=== PATIENT | male | born 1980 | race African-American/Black ===

== ENCOUNTER 2016-06-20 07:18 | Emergency (ER) | payer OTHER ==
[2016-06-20] MEDS ORDERED: IPRATROPIUM/ALBUTEROL 0.5-2.5 MG/3 ML AMPUL NEB ONE (07:49)
--- NOTE | 2016-06-20 07:50 | ER Document Report ---
HPI - HPI Patient complains to provider of: cough, cold symptoms Onset: Other - 4 days Onset/Duration: Persistent Quality of pain: Achy Pain Level: 3 Context: Patient states he was diagnosed with pneumonia 4 days ago. Patient complains of continued cough and shortness of breath with decreased energy. Patient denies any fever. Patient has been taking doxycycline and using albuterol to treat his symptoms. Patient states that whenever he went to work out in the cold today his symptoms started to worsen Associated Symptoms: Body/muscle aches, Productive cough, Shortness of breath. denies: Chest pain, Chills, Fever Exacerbated by: Denies Relieved by: Denies Similar symptoms previously: Yes Recently seen / treated by doctor: Yes - ROS ROS below otherwise negative: Yes Systems Reviewed and Negative: Yes All other systems reviewed and negative - CONSTITUTIONAL Constitutional: DENIES: Fever, Chills - EENT EENT: REPORTS: Congestion - CARDIOVASCULAR Cardiovascular: DENIES: Chest pain - RESPIRATORY Respiratory: REPORTS: Trouble Breathing, Coughing - GASTROINTESTINAL Gastrointestinal: DENIES: Abdominal Pain, Nausea, Patient vomiting - MUSCULOSKELETAL Musculoskeletal: DENIES: Extremity pain, Back Pain, Neck Pain - DERM Skin Color: Normal Skin Problems: None Past Medical History - General Information source: Patient - Social History Smoking Status: Current Every Day Smoker Chew tobacco use (# tins/day): No Frequency of alcohol use: None Drug Abuse: None Occupation: construction Lives with: Family Family History: Reviewed & Not Pertinent, DM Patient has suicidal ideation: No Patient has homicidal ideation: No - Medical History Medical History: Negative Past Surgical History: Reports: Hx Orthopedic Surgery - Right wrist tendon repair - Immunizations Hx Diphtheria, Pertussis, Tetanus Vaccination: Yes Vertical Provider Document - CONSTITUTIONAL Agree With Documented VS: Yes Exam Limitations: No Limitations General Appearance: WD/WN, No Apparent Distress - INFECTION CONTROL TRAVEL OUTSIDE OF THE [place] IN LAST 30 DAYS: No - HEENT HEENT: Atraumatic, Normocephalic. negative: Pharyngeal Exudate, Pharyngeal Tenderness, Pharyngeal Erythema, Tympanic Membrane Red, Tympanic Membrane Bulging - NECK Neck: Normal Inspection, Supple. negative: Lymphadenopathy-Left, Lymphadenopathy-Right - RESPIRATORY Respiratory: No Respiratory Distress, Rhonchi. negative: Rales O2 Sat by Pulse Oximetry: 96 - CARDIOVASCULAR Cardiovascular: Regular Rate, Regular Rhythm, No Murmur - GI/ABDOMEN Gastrointestinal: Abdomen Soft, Abdomen Non-Tender - BACK Back: Normal Inspection. negative: CVA Tenderness-Right, CVA Tenderness-Left - MUSCULOSKELETAL/EXTREMETIES Musculoskeletal/Extremeties: MAEW, FROM, Non-Tender - NEURO Level of Consciousness: Awake, Alert, Appropriate Motor/Sensory: No Motor Deficit - DERM Integumentary: Warm, Dry, No Rash Course - Vital Signs Vital signs: Temp Pulse Resp BP Pulse Ox 98.0 F 83 16 129/78 H 96 06/20/16 07:28 06/20/16 07:28 06/20/16 07:28 06/20/16 07:28 06/20/16 07:28 - Laboratory Result Diagrams: 06/20/16 08:05 06/20/16 08:05 Laboratory results interpreted by me: 06/20/16 09:31 Labs- Entire Visit 06/20/16 06/20/16 06/20/16 08:05 08:05 08:25 WBC 9.2 RBC 5.04 Hgb 14.7 Hct 42.5 MCV 84 MCH 29.2 MCHC 34.6 RDW 14.6 H Plt Count 148 L Total Counted 100 Seg Neutrophils % Not Reportable Seg Neuts % (Manual) 55 Lymphocytes % Not Reportable Lymphocytes % (Manual) 31 Monocytes % Not Reportable Monocytes % (Manual) 14 H Eosinophils % Not Reportable Eosinophils % (Manual) 0 Basophils % Not Reportable Basophils % (Manual) 0 Absolute Neutrophils Not Reportable Abs Neuts (Manual) 5.1 Absolute Lymphocytes Not Reportable Abs Lymphs (Manual) 2.9 Absolute Monocytes Not Reportable Abs Monocytes (Manual) 1.3 Absolute Eosinophils Not Reportable Absolute Eos (Manual) 0.0 Absolute Basophils Not Reportable Abs Basophils (Manual) 0.0 Toxic Vacuolation PRESENT Platelet Comment DECREASED Anisocytosis SLIGHT Tear Drop Cells SLIGHT Sodium 143.9 Potassium 3.9 Chloride 105 Carbon Dioxide 28 Anion Gap 11 BUN 8 Creatinine 0.91 Est GFR ( Amer) > 60 Est GFR (Non-Af Amer) > 60 Glucose 95 Calcium 9.5 Total Bilirubin 0.3 Direct Bilirubin 0.0 AST 24 ALT 32 Alkaline Phosphatase 79 Total Protein 7.3 Albumin 4.0 Urine Color YELLOW Urine Appearance CLEAR Urine pH 8.0 Ur Specific [place] 1.012 Urine Protein NEGATIVE Urine Glucose (UA) NEGATIVE Urine Ketones NEGATIVE Urine Blood NEGATIVE Urine Nitrite NEGATIVE Urine Bilirubin NEGATIVE Urine Urobilinogen NEGATIVE Ur Leukocyte Esterase NEGATIVE Urine WBC (Auto) 0 Squamous Epi Cells Auto 3 Urine Mucus (Auto) RARE Urine Ascorbic Acid NEGATIVE - Diagnostic Test Radiology reviewed: Reports reviewed Discharge - Discharge Clinical Impression: Cough, hx of pneumonia Upper respiratory infection Qualifiers: URI type: unspecified URI Qualified Code(s): J06.9 - Acute upper respiratory infection, unspecified Condition: Stable Disposition: HOME, SELF-CARE Instructions: Pneumonia ([facility]), Antibiotic Therapy ([facility]) Additional Instructions: Return immediately for any new or worsening symptoms Followup with your primary care provider, call tomorrow to make a followup appointment Finish out your antibiotic Continue to use albuterol inhaler as needed to help with cough Prescriptions: Benzonatate [Tessalon Perle 100 mg Capsule] 100 mg PO Q8HP PRN #20 cap PRN Reason: Naproxen [Naprosyn 250 Nmg Tablet] 1 tab PO BID #14 tablet Forms: Parent Work Note, Return to Work Referrals: [facility] [Provider Group] - Follow up as needed
[2016-06-20 08:33] LABS: HEMATOCRIT 42.5 % (37.9-51.0); HEMOGLOBIN 14.7 g/dL (13.5-17.0); HGB HCT DIFFERENCE 1.6; MEAN CORPUSCULAR HEMOGLOBIN 29.2 pg (27.0-33.4); MEAN CORPUSCULAR HGB CONC 34.6 g/dL (32.0-36.0); MEAN CORPUSCULAR VOLUME 84 fl (80-97); RED BLOOD COUNT 5.04 10^6/uL (4.35-5.55); RED CELL DISTRIBUTION WIDTH 14.6 % (11.5-14.0); WHITE BLOOD COUNT 9.2 10^3/uL (4.0-10.5)
[2016-06-20 08:44] LABS: ALANINE AMINOTRANSFERASE 32 U/L (21-72); ALKALINE PHOSPHATASE 79 U/L (38-126); ANION GAP 11 (5-19); ASPARTATE AMINO TRANSFERASE 24 U/L (17-59); BILIRUBIN,TOTAL 0.3 mg/dL (0.2-1.3); BLOOD UREA NITROGEN 8 mg/dL (7-20); CALCIUM 9.5 mg/dL (8.4-10.2); CARBON DIOXIDE 28 mmol/L (22-30); CHLORIDE 105 mmol/L (98-107); CREATININE RESULT 0.91 mg/dL (0.52-1.25); GLUCOSE 95 mg/dL (75-110); POTASSIUM 3.9 mmol/L (3.6-5.0); SODIUM 143.9 mmol/L (137-145); TOTAL PROTEIN 7.3 g/dL (6.3-8.2)
[2016-06-20 08:50] LABS: APPEARANCE,URINE CLEAR; BILIRUBIN,URINE NEGATIVE (NEGATIVE); GLUCOSE, URINE NEGATIVE (NEGATIVE); KETONES,URINE NEGATIVE (NEGATIVE); LEUKOCYTE ESTERASE,URINE NEGATIVE (NEGATIVE); NITRITE,URINE NEGATIVE (NEGATIVE); PROTEIN,URINE NEGATIVE (NEGATIVE); URINE SPECIFIC GRAVITY 1.012; UROBILINOGEN,URINE NEGATIVE mg/dL (<2.0)
[2016-06-20 08:52] LABS: BASOPHILS % (MANUAL) 0 % (0-2); EOSINOPHILS % (MANUAL) 0 % (0-6); LYMPHOCYTES % (MANUAL) 31 % (13-45); TOTAL CELLS COUNTED 100
[2016-06-20 08:54] LABS: ANISOCYTOSIS SLIGHT; TEAR DROP CELLS SLIGHT; TOXIC VACUOLATION PRESENT
[2016-06-20 10:08] VITALS: BP 136/84
== END 2016-06-20 09:50 | disposition home or self-care (01) ==
LOC: ER 07:18
DX: J06.9 Acute upper respiratory infection, unspecified (principal); M79.1 Myalgia; F17.200 Nicotine dependence, unspecified, uncomplicated
CPT/HCPCS: 94640; 99283; 36415; 87040; 87070; 87205; 85025; 80053; 81001; 71020; J7620

== ENCOUNTER 2016-10-09 17:40 | Emergency (ER) | payer OTHER ==
[2016-10-09] MEDS ORDERED: OXYCODONE-ACETAMINOPHEN 5-325 MG TABLET PO ONE (18:28)
[2016-10-09] MEDS ORDERED: PENICILLIN V POTASSIUM 500 MG TABLET PO ONE (18:28)
--- NOTE | 2016-10-09 18:28 | ER Document Report ---
HPI - HPI Patient complains to provider of: dental pain Onset: Other - 3 weeks Onset/Duration: Persistent Quality of pain: Achy, Throbbing Severity: Severe Pain Level: 5 Context: Patient presents emergency department with complaints of dental pain for the past 3 weeks. He reports cracked tooth for a while but the tooth just started hurting. He reports he's been using ibuprofen and orajel on his right lower back molar without relief of symptoms. He denies fever vomiting diarrhea. He reports he has an appointment or plans on getting an appointment with a dentist , Dr. Bañuelos. Associated Symptoms: None Exacerbated by: Denies Relieved by: Denies Similar symptoms previously: No Recently seen / treated by doctor: No - DERM Skin Color: Normal Past Medical History - General Information source: Patient - Social History Smoking Status: Unknown if Ever Smoked Cigarette use (# per day): No Frequency of alcohol use: None Drug Abuse: None Lives with: Family Family History: Reviewed & Not Pertinent, DM Patient has suicidal ideation: No Patient has homicidal ideation: No - Medical History Medical History: Negative Renal/ Medical History: Denies: Hx Peritoneal Dialysis Past Surgical History: Reports: Hx Orthopedic Surgery - Right wrist tendon repair - Immunizations Hx Diphtheria, Pertussis, Tetanus Vaccination: Yes Vertical Provider Document - CONSTITUTIONAL Agree With Documented VS: Yes Exam Limitations: No Limitations General Appearance: WD/WN, Mild Distress - guarding mouth - INFECTION CONTROL TRAVEL OUTSIDE OF THE [place] IN LAST 30 DAYS: No - HEENT HEENT: Atraumatic, Normocephalic. negative: Conjuctival Injection, Pharyngeal Erythema Mouth Diagram: 1 - c/o pain, no erythema, pustule, swelling, opens mouth wide, no induration, no ludwigs - NECK Neck: Normal Inspection, Supple. negative: Lymphadenopathy-Left, Lymphadenopathy-Right - RESPIRATORY Respiratory: Breath Sounds Normal, No Respiratory Distress O2 Sat by Pulse Oximetry: 98 - CARDIOVASCULAR Cardiovascular: Regular Rate, Regular Rhythm - MUSCULOSKELETAL/EXTREMETIES Musculoskeletal/Extremeties: [place]GH [place] - NEURO Level of Consciousness: Awake, Alert, Appropriate Motor/Sensory: No Motor Deficit - DERM Integumentary: Warm, Dry Course - Re-evaluation Re-evalutation: 10/09/16 18:33 Patient instructed on penicillin and Percocet for pain. Patient reports he has an appointment he plans on getting an appointment with a dentist Dr. Bañuelos tomorrow. Patient instructed the medication will not take care of his problem. But will help him feel better. He verbalized understanding that the definitive treatment will be follow-up with a dentist. - Vital Signs Vital signs: Temp Pulse Resp BP Pulse Ox 98.6 F 73 16 162/102 H 98 10/09/16 18:03 10/09/16 18:03 10/09/16 18:03 10/09/16 18:03 10/09/16 18:03 Discharge - Discharge Clinical Impression: Pain, dental, Elevated blood pressure reading Condition: Stable Disposition: HOME, SELF-CARE Instructions: Oral Narcotic Medication ([facility]), Toothache ([facility]), Penicillin V K ( [facility]), [facility], Dentist Additional Instructions: *You have been evaluated for dental pain, elevated blood pressure reading *Take medications as prescribed *Follow up with a dentist this next week *Return to ED for worsening condition, changes, needs Monitor your blood pressure. Your blood pressure was elevated today. This may be because you were anxious, in pain or because you need medication. It is important to follow up with your primary care provider for full evaluation. Prescriptions: Oxycodone HCl/Acetaminophen [Percocet 5-325 mg Tablet] 1 - 2 tab PO ASDIR PRN # 15 tablet PRN Reason: Penicillin V Potassium [Penicillin Vk 500 mg Tablet] 500 mg PO BID #20 tablet Forms: Elevated Blood Pressure
[2016-10-09 18:54] VITALS: BP 148/92
== END 2016-10-09 18:54 | disposition home or self-care (01) ==
LOC: ER 17:40
DX: K08.9 Disorder of teeth and supporting structures, unspecified (principal); R03.0 Elevated blood-pressure reading, without diagnosis of hypertension
CPT/HCPCS: 99282

== ENCOUNTER 2017-08-17 06:41 | Emergency (ER) | payer SELFPAY ==
[2017-08-17 07:13] LABS: ABSOLUTE BASOPHILS # (AUTO) 0.1 10^3/uL (0.0-0.2); ABSOLUTE EOSINOPHILS # (AUTO) 0.2 10^3/uL (0.0-0.6); ABSOLUTE LYMPHOCYTES (AUTO) 1.8 10^3/uL (0.5-4.7); ABSOLUTE MONOCYTES (AUTO) 1.1 10^3/uL (0.1-1.4); ABSOLUTE NEUT (AUTO) 8.2 10^3/uL (1.7-8.2); BASOPHILS % (AUTO) 0.8 % (0-2); EOSINOPHILS % (AUTO) 1.5 % (0-6); HEMATOCRIT 42.7 % (37.9-51.0); HEMOGLOBIN 14.7 g/dL (13.5-17.0); LYMPHOCYTES % (AUTO) 15.6 % (13-45); MEAN CORPUSCULAR HEMOGLOBIN 29.4 pg (27.0-33.4); MEAN CORPUSCULAR HGB CONC 34.4 g/dL (32.0-36.0); MEAN CORPUSCULAR VOLUME 86 fl (80-97); MONOCYTES % (AUTO) 9.9 % (3-13); PLATELET COUNT 190 10^3/uL (150-450); RED BLOOD COUNT 4.99 10^6/uL (4.35-5.55); RED CELL DISTRIBUTION WIDTH 13.9 % (11.5-14.0); SEGMENTED NEUTROPHILS % (AUTO) 72.2 % (42-78); TOTAL CELLS COUNTED % (AUTO) 100 %; WHITE BLOOD COUNT 11.3 10^3/uL (4.0-10.5)
[2017-08-17 07:23] LABS: ALANINE AMINOTRANSFERASE 34 U/L (21-72); ALBUMIN 4.4 g/dL (3.5-5.0); ALKALINE PHOSPHATASE 68 U/L (38-126); ANION GAP 11 (5-19); ASPARTATE AMINO TRANSFERASE 20 U/L (17-59); BILIRUBIN,DIRECT 0.3 mg/dL (0.0-0.4); BILIRUBIN,TOTAL 0.3 mg/dL (0.2-1.3); BLOOD UREA NITROGEN 11 mg/dL (7-20); CARBON DIOXIDE 24 mmol/L (22-30); CHLORIDE 107 mmol/L (98-107); GLUCOSE 117 mg/dL (75-110); POTASSIUM 4.4 mmol/L (3.6-5.0); SODIUM 142.2 mmol/L (137-145)
[2017-08-17 07:24] LABS: LIPASE 198.8 U/L (23-300); TOTAL PROTEIN 7.6 g/dL (6.3-8.2)
[2017-08-17 07:38] LABS: APPEARANCE,URINE CLEAR; BILIRUBIN,URINE NEGATIVE (NEGATIVE); COLOR,URINE STRAW; GLUCOSE, URINE NEGATIVE (NEGATIVE); KETONES,URINE NEGATIVE (NEGATIVE); LEUKOCYTE ESTERASE,URINE NEGATIVE (NEGATIVE); NITRITE,URINE NEGATIVE (NEGATIVE); PROTEIN,URINE NEGATIVE (NEGATIVE); URINE SPECIFIC GRAVITY 1.011; UROBILINOGEN,URINE NEGATIVE mg/dL (<2.0)
[2017-08-17] MEDS ORDERED: ONDANSETRON 4 MG TAB.RAPDIS PO ONE (07:41)
[2017-08-17] MEDS ORDERED: DICYCLOMINE HCL 20 MG TABLET PO ONE (07:41)
--- NOTE | 2017-08-17 07:52 | ER Document Report ---
ED General - General Chief Complaint: Abdominal Pain Stated Complaint: ABDOMINAL PAIN Time Seen by Provider: 08/17/17 06:53 TRAVEL OUTSIDE OF THE [place] IN LAST 30 DAYS: No - HPI Patient complains to provider of: Abdominal pain Notes: Patient coming in for diffuse crampy abdominal pain ongoing since last night. Patient states he had Burger Garcia at around 9:00 workup around 2:00 with abdominal pain states slight nausea normal bowel movement no diarrhea no vomiting. Patient otherwise is concerned that he may have diverticulitis. States that he was told by his [id number] that symptoms are similar to when she had a diverticular flare. Patient states recently had an upper and lower GI scope with only a small polyp no signs of diverticulosis on the prescription this was done approximately less than a year ago. Resting company upon my evaluation - Related Data Allergies/Adverse Reactions: No Known Allergies Allergy (Verified 10/09/16 18:01) Past Medical History - Social History Smoking Status: Current Every Day Smoker Chew tobacco use (# tins/day): No Frequency of alcohol use: None Drug Abuse: None Family History: Reviewed & Not Pertinent, DM Patient has suicidal ideation: No Patient has homicidal ideation: No Renal/ Medical History: Denies: Hx Peritoneal Dialysis Past Surgical History: Reports: Hx Orthopedic Surgery - Right wrist tendon repair - Immunizations Hx Diphtheria, Pertussis, Tetanus Vaccination: Yes Review of Systems - Review of Systems Constitutional: No symptoms reported EENT: No symptoms reported Cardiovascular: No symptoms reported Respiratory: No symptoms reported Gastrointestinal: Abdominal pain Genitourinary: No symptoms reported Male Genitourinary: No symptoms reported Musculoskeletal: No symptoms reported Skin: No symptoms reported Hematologic/Lymphatic: No symptoms reported Neurological/Psychological: No symptoms reported Physical Exam - Vital signs Vitals: Temp Pulse Resp BP Pulse Ox 98.6 F 66 17 141/77 H 97 08/17/17 06:48 08/17/17 06:48 08/17/17 06:48 08/17/17 06:48 08/17/17 06:48 Interpretation: Normal - General General appearance: Appears well, Alert - HEENT Head: Normocephalic, Atraumatic Eyes: Normal Pupils: PERRL - Respiratory Respiratory status: No respiratory distress Chest status: Nontender Breath sounds: Normal Chest palpation: Normal - Cardiovascular Rhythm: Regular Heart sounds: Normal auscultation Murmur: No - Abdominal Inspection: Normal Distension: No distension Bowel sounds: Normal Tenderness: Tender - Diffuse nonspecific tenderness no guarding or rebound. No : McBurney's point, Horowitz's sign, Guarding, Rebound Organomegaly: No organomegaly - Back Back: Normal, Nontender - Extremities General upper extremity: Normal inspection, Nontender, Normal color, Normal ROM , Normal temperature General lower extremity: Normal inspection, Nontender, Normal color, Normal ROM , Normal temperature, Normal weight bearing. No: Mary Jane's sign - Neurological Neuro grossly intact: Yes Cognition: Normal Orientation: AAOx4 [place] Coma Scale Eye Opening: Spontaneous Oleg Coma Scale Verbal: Oriented Oleg Coma Scale Motor: Obeys Commands Oleg Coma Scale Total: 15 Speech: Normal Motor strength normal: LUE, RUE, LLE, RLE Sensory: Normal - Psychological Associated symptoms: Normal affect, Normal mood - Skin Skin Temperature: Warm Skin Moisture: Dry Skin Color: Normal Course - Re-evaluation Re-evalutation: 08/17/17 13:55 The patient presents with abdominal pain without signs of peritonitis or other life-threatening or serious etiology. The patient appears stable for discharge and has been instructed to return immediately if the symptoms worsen in any way , or in 8-12hr if not improved for re-evaluation. The patient has been instructed to return if the symptoms worsen or change in any way. Laboratory values not reveal any significant pathology. Patient more likely has a foodborne or viral illness causing crampy abdominal pain. Patient was given nausea control pain control discharged home. - Vital Signs Vital signs: Temp Pulse Resp BP Pulse Ox 98.6 F 66 20 136/78 H 100 08/17/17 06:48 08/17/17 06:48 08/17/17 07:58 08/17/17 07:58 08/17/17 07:58 - Laboratory Result Diagrams: 08/17/17 07:00 08/17/17 07:00 Laboratory results interpreted by me: 08/17/17 08/17/17 07:00 07:00 WBC 11.3 H Glucose 117 H Discharge - Discharge Clinical Impression: Abdominal pain Qualifiers: Abdominal location: generalized Qualified Code(s): R10.84 - Generalized abdominal pain Instructions: Abdominal Pain ([facility]), Antispasmodics ([facility]), Gastroenteritis ( adult) ([facility]) Additional Instructions: Laboratory studies today did not reveal any significant pathology. Your abdominal examination and history is consistent with either a foodborne illness or a viral illness causing her abdominal pain. Please take medication as prescribed. He may also take Tylenol for pain control. Take Zofran for nausea control. I recommend a bland diet mostly consistent with fluids and starchy foods. Return to ER symptoms worsen. Prescriptions: Dicyclomine HCl [Bentyl 20 mg Tablet] 20 mg PO QID #30 tablet Ondansetron [Zofran Odt] 4 mg PO Q6 PRN #30 tab.rapdis PRN Reason: For Nausea/Vomiting Forms: Return to Work
[2017-08-17 08:11] VITALS: BP 136/78
== END 2017-08-17 07:58 | disposition home or self-care (01) ==
LOC: ER 06:41
DX: R10.84 Generalized abdominal pain (principal); R11.0 Nausea; F17.200 Nicotine dependence, unspecified, uncomplicated
CPT/HCPCS: 99284; 36415; 83690; 85025; 80053; 81001; J3490; S0119

== ENCOUNTER 2019-04-06 12:14 | Emergency (ER) | payer SELFPAY ==
[2019-04-06 12:21] VITALS: BP 146/90
[2019-04-06] MEDS ORDERED: METHOCARBAMOL 500 MG TABLET PO ONE (12:56)
[2019-04-06] MEDS ORDERED: KETOROLAC TROMETHAMINE INJ/PF 30 MG/1 ML SDV IM ONE (12:56)
[2019-04-06 13:14] LABS: APPEARANCE,URINE CLEAR; BILIRUBIN,URINE NEGATIVE (NEGATIVE); COLOR,URINE STRAW; GLUCOSE, URINE NEGATIVE (NEGATIVE); KETONES,URINE NEGATIVE (NEGATIVE); LEUKOCYTE ESTERASE,URINE NEGATIVE (NEGATIVE); NITRITE,URINE NEGATIVE (NEGATIVE); PROTEIN,URINE NEGATIVE (NEGATIVE); URINE SPECIFIC GRAVITY 1.005; UROBILINOGEN,URINE NEGATIVE mg/dL (<2.0)
--- NOTE | 2019-04-06 13:23 | ER Document Report ---
HPI - HPI Time Seen by Provider: 04/06/19 12:46 Pain Level: 5 Context: Patient is a 38-year-old male who presents to the emergency department with a chief complaint of low back pain. Patient reports this has been present for 2 days. Patient reports this was a gradual onset. Patient reports he is not having any urinary symptoms but did feel relief when he emptied his bladder. Patient denies blood in the urine. Patient denies fever. Patient reports he has had intermittent chills. Patient states he does not have a history of kidney stones. Patient reports that his back pain is bilateral. Patient reports he did quit smoking cigarettes 1 month ago and has been coughing up a lot of clear mucus. Patient reports he feels like he has a muscle tightness in his back and is unsure if this is from all the coughing he has done. Patient reports he had a urinary tract infection in the past but that this seems different. Patient reports his back pain is worse with movement. Patient denies saddle anesthesia. Patient denies radiation of his pain. Patient denies numbness or tingling to his lower extremities. Patient denies injury, recent heavy lifting or a fall. - REPRODUCTIVE Reproductive: DENIES: : Past Medical History - General Information source: Patient - Social History Smoking Status: Former Smoker Frequency of alcohol use: None Drug Abuse: None Lives with: Spouse/Significant other Family History: Reviewed & Not Pertinent, DM Patient has suicidal ideation: No Patient has homicidal ideation: No - Past Medical History Cardiac Medical History: Reports: None Pulmonary Medical History: Reports: None EENT Medical History: Reports: None Neurological Medical History: Reports: None Endocrine Medical History: Reports: None Renal/ Medical History: Reports: None. Denies: Hx Peritoneal Dialysis Malignancy Medical History: Reports None GI Medical History: Reports: None Musculoskeletal Medical History: Reports None Skin Medical History: Reports None Psychiatric Medical History: Reports: None Traumatic Medical History: Reports: None Infectious Medical History: Reports: None Past Surgical History: Reports: Hx Orthopedic Surgery - Right wrist tendon repair - Immunizations Hx Diphtheria, Pertussis, Tetanus Vaccination: Yes Vertical Provider Document - CONSTITUTIONAL Agree With Documented VS: Yes Exam Limitations: No Limitations General Appearance: No Apparent Distress - INFECTION CONTROL TRAVEL OUTSIDE OF THE [place] IN LAST 30 DAYS: No - HEENT HEENT: Atraumatic, Normocephalic, PERRLA - NECK Neck: Normal Inspection - RESPIRATORY Respiratory: Breath Sounds Normal, No Respiratory Distress Notes: Intermittent dry cough. - CARDIOVASCULAR Cardiovascular: Regular Rate, Regular Rhythm - GI/ABDOMEN Gastrointestinal: Abdomen Soft, Abdomen Non-Tender, Normal Bowel Sounds - BACK Notes: No CVA tenderness. Patient has point tenderness to bilateral latissimus dorsi in the thoracolumbar fascia. No cervical, thoracic or lumbar midline tenderness. - MUSCULOSKELETAL/EXTREMETIES Musculoskeletal/Extremeties: FROM, No Edema - NEURO Level of Consciousness: Awake, Alert, Appropriate - DERM Integumentary: Warm, Dry, No Rash Course - Re-evaluation Re-evalutation: 04/06/19 13:40 Patient reports feeling better after receiving the muscle relaxer and anti- inflammatory. I did inform the patient that his urinalysis was negative but return for any new or worsening symptoms. I am treating the patient for a muscle strain. Strict return precautions given. Patient continues to deny radiation of pain. Patient reports last Monday he did cough up a lot of clear phlegm. Patient reports he thinks is from stopping smoking. - Vital Signs Vital signs: Temp Pulse Resp BP Pulse Ox 99.0 F 71 18 146/90 H 96 04/06/19 12:21 04/06/19 12:21 04/06/19 12:21 04/06/19 12:21 04/06/19 12:21 - Laboratory Laboratory results interpreted by me: 04/06/19 13:20 Laboratory 04/06/19 13:00 Urine Color STRAW Urine Appearance CLEAR Urine pH 8.0 Ur Specific [place] 1.005 Urine Protein NEGATIVE Urine Glucose (UA) NEGATIVE Urine Ketones NEGATIVE Urine Blood NEGATIVE Urine Nitrite NEGATIVE Urine Bilirubin NEGATIVE Urine Urobilinogen NEGATIVE Ur Leukocyte Esterase NEGATIVE Urine WBC (Auto) 2 Urine RBC (Auto) 0 Urine Mucus (Auto) RARE Urine Ascorbic Acid NEGATIVE Discharge - Discharge Clinical Impression: Muscle strain Back pain Qualifiers: Back pain location: low back pain Chronicity: acute Back pain laterality: bilateral Sciatica presence: without sciatica Qualified Code(s): M54.5 - Low back pain Condition: Stable Disposition: HOME, SELF-CARE Additional Instructions: Today you are seen in the emergency department for back pain. Your symptoms are consistent with a muscle strain. We will treat this with anti-inflammatories as well as muscle relaxers. We did check a urinalysis which did not indicate an infection of the urine or blood in the urine. Please use ice packs to the area. It is unsure what is causes pain as you do not report an injury. This could be from all the coughing and spitting that you have been doing since you have quit smoking. Please return emergency department if your symptoms change or worsen. Please return if you have radiation of pain, numbness or tingling down the back of your leg or weakness in the leg, fever or any other concerning signs or symptoms. LOW BACK PAIN: Three out of every four people will have an episode of disabling back pain during their lifetime. Most commonly the pain is due to straining of the muscles and ligaments in the low back. Usual treatment includes: (1) Rest on a firm surface. Avoid lying on your stomach. (2) Ice pack the painful area. After a few days, gentle heat may be used intermittently to relax the area, or ice packs can be continued. (3) Medication may be needed -- muscle relaxers and antiinflammatory medicines are commonly used. (4) As the back improves, exercises are prescribed to strengthen the back and abdominal muscles. Your doctor will advise you on the proper care for your back at each stage in your recovery. You may be better in a few days -- or healing may take several weeks. If new symptoms of a "herniated disc" (radiation of pain, numbness, or tingling down the back of the leg or weakness in the leg) occur, you should be re-examined. Further testing may be necessary. PAIN MEDICATION INJECTION: You have received an injection of a pain medication. You should experience significant pain relief within 45 minutes. If this injection was a narcotic -- it will impair your judgement, slow your reaction time and make you sleepy (as well as relieve your pain). Narcotics also can cause nausea. You should not drive, work with machinery, or perform any task requiring mental alertness until all effects of the medication are gone -- six to eight hours. Do not take any alcohol, or sedatives, and do not take any other medication without checking with your physician. MUSCLE RELAXERS: Muscle relaxing medications are usually prescribed for acute muscle spasm or injury to the neck and back. They are often combined with antiinflammatory pain medication for increased relief. You may stop the muscle relaxer when the pain and stiffness have improved. Start the medication again if spasms recur. Muscle relaxers may cause drowsiness, especially with the first dose. Do not operate machinery or drive while under the effects of the medication. Most muscle relaxers last up to 24 hours. Do not combine the medication with alcohol. ICE PACKS: Apply ice packs frequently against the painful area. Many different schedules are recommended, such as "20 minutes on, 20 minutes off" or "one hour ice, two hours rest." If you need to work, you may need to go longer between ice treatments. You should plan to have the area ice packed AT LEAST one fourth of the time. The ice should be applied over the wrap, tape, or splint, or over a layer of cloth -- not directly against the skin. Some ice bags have a built-in cloth and can be put directly on the skin. WARM PACKS: After approximately two days, apply gentle heat (such as a heating pad or hot water bottle) for about 20 to 30 minutes about every two hours -- at least four times daily. Warmth and elevation will help you make a more rapid recovery, and will ease the pain considerably. Do not use HOT heat, and never apply heat for longer than 30 minutes. The continuous heat can invisibly damage skin and muscles -- even when no burn is seen on the surface. Damaged muscles can make you MORE sore. FOLLOW-UP CARE: If you have been referred to a physician for follow-up care, call the physicians office for an appointment as you were instructed or within the next two days. If you experience worsening or a significant change in your symptoms, notify the physician immediately or return to the Emergency Department at any time for re-evaluation. Prescriptions: Naproxen 500 mg PO BID PRN #14 tablet PRN Reason: Methocarbamol [Robaxin 500 mg Tablet] 1,000 mg PO TID PRN #21 tablet PRN Reason: Forms: Return to Work
== END 2019-04-06 13:43 | disposition home or self-care (01) ==
LOC: ER 12:14
DX: R10.9 Unspecified abdominal pain (principal); R53.1 Weakness; Z87.891 Personal history of nicotine dependence
CPT/HCPCS: 81001; J1885; 96374; 99283

== ENCOUNTER 2019-04-07 21:58 | Emergency (ER) | payer SELFPAY ==
[2019-04-07] MEDS ORDERED: PROCHLORPERAZINE EDISYLATE INJ 10 MG/2 ML VIAL IV ONE (22:53)
[2019-04-07] MEDS ORDERED: RINGERS SOLUTION,LACTATED 1,000 ML IV ONE (22:53)
[2019-04-07] MEDS ORDERED: DIPHENHYDRAMINE HCL 50 MG/ML VIAL IV ONE (22:53)
--- NOTE | 2019-04-07 22:55 | ER Document Report ---
ED General - General Chief Complaint: General Weakness Stated Complaint: WEAKNESS Time Seen by Provider: 04/07/19 22:38 TRAVEL OUTSIDE OF THE [place] IN LAST 30 DAYS: No - HPI Notes: 38-year-old male presents with vague generalized weakness and "spitting up". Patient is somewhat of a poor historian, indicates that he over the last couple of days has been "spitting up". When pressed extensively, initially unclear whether he is actually vomiting or coughing up phlegm but he is adamant that he is "spitting up phlegm". Not eating as much as normal. Has some vague mid abdominal pain that comes and goes. No diarrhea. No recent travel, no recent antibiotic use. No fever, chills or sweats. Was seen here yesterday with back pain, had a negative UA and was felt to have some type of chronic back pain issue. Moderate intensity, gradual onset, nonradiating. No other modifying factors, no other associated symptoms, no other provocative or palliative factors. - Related Data Allergies/Adverse Reactions: No Known Allergies Allergy (Verified 10/09/16 18:01) Past Medical History - Social History Smoking Status: Former Smoker Family History: Reviewed & Not Pertinent, DM Patient has suicidal ideation: No Patient has homicidal ideation: No - Medical History Notes: Denies any acute medical issues Renal/ Medical History: Denies: Hx Peritoneal Dialysis Past Surgical History: Reports: Hx Orthopedic Surgery - Right wrist tendon repair - Immunizations Hx Diphtheria, Pertussis, Tetanus Vaccination: Yes Review of Systems - Review of Systems Notes: Review of systems as in the history of present illness, otherwise negative x 10 systems. Physical Exam - Vital signs Vitals: Temp Pulse Resp BP Pulse Ox 98.0 F 70 20 159/95 H 99 04/07/19 22:03 04/07/19 22:03 04/07/19 22:03 04/07/19 22:03 04/07/19 22:03 - Notes Notes: General: Well developed . HEENT: Normocephalic, atraumatic. Pupils equal round reactive to light. No JVD. Chest: No trauma. Respiratory: Good air exchange, normal excursion. Cardiac: Regular rhythm. No murmurs or gallops. Abdomen: Soft, benign. Mild epigastric mid abdominal tenderness Back: No asymmetry or gross abnormality. Motor: Grossly normal power and tone. Neurologic: Alert, nonfocal. Cranial nerves II-12 are intact. Sensation intact. Vascular: Well perfused. Normal peripheral pulses. Skin: No petechiae or purpura. Course - Re-evaluation Re-evalutation: 04/07/19 22:55 Well-appearing 38-year male with the after mentioned symptoms. Consider underlying viral illness, doubt obstruction, to be pink otitis gastritis peptic ulcer disease, less likely biliary tract disease. We will proceed with IV fluids, antiemetics, serial exams, laboratory valuation and reassess. 04/08/19 03:19 Labs reviewed, leukocytosis is noted with a white count of 18.8. Remainder chemistries and LFTs unremarkable. Given the patient's been abdominal pain leukocytosis, consideration is given to intra-abdominal emergency such as perforation or diverticulitis with perforation. CT imaging is obtained, ultimately shows no acute abnormality. Patient is watched throughout his ED course and is had some improvement, did have an episode of diarrhea. He is discharged home to follow close with his primary care physician, return if worsening. - Vital Signs Vital signs: Temp Pulse Resp BP Pulse Ox 98.0 F 70 16 128/88 H 97 04/07/19 22:03 04/07/19 22:03 04/08/19 03:00 04/08/19 02:23 04/08/19 03:01 - Laboratory Result Diagrams: 04/07/19 23:16 04/07/19 23:16 Laboratory results interpreted by me: 04/07/19 04/07/19 23:16 23:16 WBC 18.8 H RDW 14.2 H Absolute Neuts (auto) 12.2 H Absolute Monos (auto) 2.4 H Chloride 108 H Discharge - Discharge Clinical Impression: Abdominal pain Qualifiers: Abdominal location: unspecified location Qualified Code(s): R10.9 - Unspecified abdominal pain Condition: Stable Disposition: HOME, SELF-CARE Instructions: Abdominal Pain ([facility]) Prescriptions: Dicyclomine HCl [Bentyl 20 mg Tablet] 20 mg PO Q8 #12 tablet Ondansetron [Zofran Odt 4 mg Tablet] 1 - 2 tab PO Q4H PRN #15 tab.rapdis PRN Reason: For Nausea/Vomiting
[2019-04-07 23:28] LABS: ABSOLUTE BASOPHILS # (AUTO) 0.1 10^3/uL (0.0-0.2); ABSOLUTE EOSINOPHILS # (AUTO) 0.2 10^3/uL (0.0-0.6); ABSOLUTE LYMPHOCYTES (AUTO) 3.9 10^3/uL (0.5-4.7); ABSOLUTE MONOCYTES (AUTO) 2.4 10^3/uL (0.1-1.4); ABSOLUTE NEUT (AUTO) 12.2 10^3/uL (1.7-8.2); BASOPHILS % (AUTO) 0.6 % (0-2); EOSINOPHILS % (AUTO) 1.3 % (0-6); HEMATOCRIT 43.3 % (37.9-51.0); HEMOGLOBIN 14.5 g/dL (13.5-17.0); LYMPHOCYTES % (AUTO) 20.7 % (13-45); MEAN CORPUSCULAR HGB CONC 33.5 g/dL (32.0-36.0); MEAN CORPUSCULAR VOLUME 87 fl (80-97); MONOCYTES % (AUTO) 12.6 % (3-13); PLATELET COUNT 184 10^3/uL (150-450); RED BLOOD COUNT 4.99 10^6/uL (4.35-5.55); RED CELL DISTRIBUTION WIDTH 14.2 % (11.5-14.0); SEGMENTED NEUTROPHILS % (AUTO) 64.8 % (42-78); TOTAL CELLS COUNTED % (AUTO) 100 %; WHITE BLOOD COUNT 18.8 10^3/uL (4.0-10.5)
--- NOTE | 2019-04-07 23:29 | RADIOLOGY REPORT (SQ) ---
EXAM DESCRIPTION: XR CHEST 1 VIEW COMPLETED DATE/TME: 04/07/2019 22:53 CLINICAL HISTORY: 38 years, Male, chest pain COMPARISON: None. NUMBER OF VIEWS: TECHNIQUE: LIMITATIONS: None. FINDINGS: No evidence of pulmonary infiltrate or pleural effusion. The heart and mediastinum are unremarkable. Pulmonary vascularity appears normal. IMPRESSION: Normal chest x-ray. copyright 2010 [employer]- All Rights Reserved
[2019-04-07 23:57] LABS: ALBUMIN 4.6 g/dL (3.5-5.0); ALKALINE PHOSPHATASE 72 U/L (38-126); ANION GAP 13 (5-19); ASPARTATE AMINO TRANSFERASE 23 U/L (17-59); BILIRUBIN,DIRECT 0.2 mg/dL (0.0-0.4); BILIRUBIN,TOTAL 0.4 mg/dL (0.2-1.3); BLOOD UREA NITROGEN 12 mg/dL (7-20); CALCIUM 9.8 mg/dL (8.4-10.2); CARBON DIOXIDE 24 mmol/L (22-30); CHLORIDE 108 mmol/L (98-107); GLUCOSE 95 mg/dL (75-110); POTASSIUM 3.9 mmol/L (3.6-5.0); TOTAL PROTEIN 8.1 g/dL (6.3-8.2)
--- NOTE | 2019-04-08 03:13 | RADIOLOGY REPORT (SQ) ---
CLINICAL HISTORY: Abd pain and leukocytosis COMPARISON: None. TECHNIQUE: CT ABDOMEN PELVIS WITH IV CONTRAST on 04/08/2019 12:00 AM CDT This exam was performed according to our departmental dose-optimization program, which includes automated exposure control, adjustment of the mA and/or kV according to patient size and/or use of iterative reconstruction technique. FINDINGS: Lower lungs are clear. Abdomen: The liver is normal in appearance. There is no biliary dilatation. Gallbladder is normal in appearance. The pancreas and spleen are normal in appearance. The adrenal glands and kidneys are unremarkable. Abdominal aorta is normal in course and caliber without aneurysm. There is no free air. There is no retroperitoneal adenopathy. Pelvis: There is no bowel obstruction. Urinary bladder is unremarkable. There is no free fluid. Appendix is normal. Skeleton: There are no acute osseous findings. No suspicious bony lesions. IMPRESSION: No acute process.
[2019-04-08 03:58] VITALS: BP 126/86
== END 2019-04-08 03:59 | disposition home or self-care (01) ==
LOC: ER 21:58
DX: R10.9 Unspecified abdominal pain (principal); R53.1 Weakness; R19.7 Diarrhea, unspecified
CPT/HCPCS: 36415; 83690; 85025; 80053; 71045; 74177; J1200; J0780; J7120; 96361; 96374; 96375; 99283

== ENCOUNTER 2019-04-13 22:59 | Emergency (ER) | payer SELFPAY ==
[2019-04-14 00:37] LABS: ABSOLUTE BASOPHILS # (AUTO) 0.1 10^3/uL (0.0-0.2); ABSOLUTE EOSINOPHILS # (AUTO) 0.2 10^3/uL (0.0-0.6); ABSOLUTE LYMPHOCYTES (AUTO) 2.8 10^3/uL (0.5-4.7); ABSOLUTE NEUT (AUTO) 7.5 10^3/uL (1.7-8.2); BASOPHILS % (AUTO) 0.7 % (0-2); EOSINOPHILS % (AUTO) 1.4 % (0-6); HEMATOCRIT 38.8 % (37.9-51.0); HEMOGLOBIN 13.4 g/dL (13.5-17.0); LYMPHOCYTES % (AUTO) 24.4 % (13-45); MEAN CORPUSCULAR HEMOGLOBIN 29.8 pg (27.0-33.4); MEAN CORPUSCULAR HGB CONC 34.4 g/dL (32.0-36.0); MEAN CORPUSCULAR VOLUME 86 fl (80-97); PLATELET COUNT 170 10^3/uL (150-450); RED BLOOD COUNT 4.49 10^6/uL (4.35-5.55); RED CELL DISTRIBUTION WIDTH 13.8 % (11.5-14.0); SEGMENTED NEUTROPHILS % (AUTO) 64.5 % (42-78); TOTAL CELLS COUNTED % (AUTO) 100 %; WHITE BLOOD COUNT 11.6 10^3/uL (4.0-10.5)
[2019-04-14 00:52] LABS: ALBUMIN 4.2 g/dL (3.5-5.0); ALKALINE PHOSPHATASE 69 U/L (38-126); ANION GAP 9 (5-19); ASPARTATE AMINO TRANSFERASE 17 U/L (17-59); BILIRUBIN,TOTAL 0.4 mg/dL (0.2-1.3); BLOOD UREA NITROGEN 8 mg/dL (7-20); CALCIUM 9.4 mg/dL (8.4-10.2); CARBON DIOXIDE 28 mmol/L (22-30); CHLORIDE 106 mmol/L (98-107); CREATINE KINASE 155 U/L (55-170); GLUCOSE 92 mg/dL (75-110); POTASSIUM 3.5 mmol/L (3.6-5.0); TOTAL PROTEIN 7.3 g/dL (6.3-8.2)
--- NOTE | 2019-04-14 00:55 | ER Document Report ---
ED General - General Chief Complaint: Chest Pain Stated Complaint: CHEST PAIN/LIGHTHEADED/SHORTNESS OF BREAH Time Seen by Provider: 04/14/19 00:18 TRAVEL OUTSIDE OF THE [place] IN LAST 30 DAYS: No - HPI Notes: Patient is a 38-year-old male who presents emergency department for evaluation of left-sided chest palpitations. He has been coughing, has attributed that to quitting smoking. He is unsure as to whether or not he has bronchitis. He took an cthf-ymv-[id number] generic cough medicine/decongestant. He states he started feeling his heart pounding. He felt somewhat short of breath. He states that this time he has no symptoms or concerns. He really did not have any chest pain. He does admit to some pain when pushing into the area, but at rest he does not have any pain at all. - Related Data Allergies/Adverse Reactions: No Known Allergies Allergy (Verified 10/09/16 18:01) Home Medications: None Past Medical History - General Information source: Patient - Social History Smoking Status: Former Smoker Chew tobacco use (# tins/day): No Frequency of alcohol use: None Drug Abuse: None Family History: Reviewed & Not Pertinent, DM Patient has suicidal ideation: No Patient has homicidal ideation: No Renal/ Medical History: Denies: Hx Peritoneal Dialysis Past Surgical History: Reports: Hx Orthopedic Surgery - Right wrist tendon repair - Immunizations Hx Diphtheria, Pertussis, Tetanus Vaccination: Yes Review of Systems - Review of Systems Constitutional: No symptoms reported EENT: No symptoms reported Cardiovascular: See HPI Respiratory: See HPI Gastrointestinal: No symptoms reported Genitourinary: No symptoms reported Musculoskeletal: No symptoms reported Skin: No symptoms reported Neurological/Psychological: No symptoms reported Physical Exam - Vital signs Vitals: Temp Pulse Resp BP Pulse Ox 98.0 F 59 L 18 163/109 H 97 04/13/19 23:14 04/13/19 23:14 04/13/19 23:14 04/13/19 23:14 04/13/19 23:14 - Notes Notes: Vital signs reviewed, please refer to chart. Head is normocephalic, atraumatic. Pupils equal round, reactive to light. Neck is supple without meningismus. Heart is regular rate and rhythm. Lungs are clear to auscultation bilaterally. Abdomen is soft, nontender, normoactive bowel sounds throughout. Extremities without cyanosis, clubbing. Posterior calves are nontender. Peripheral pulses are equal. Skin is warm and dry. Patient is awake, alert, neurological exam is nonfocal. Course - Re-evaluation Re-evalutation: 04/14/19 00:56 Patient presents emergency department for evaluation. He had initially mention chest pain, but his complaint is more related to palpitations. He just started an coyt-[id number] cough medications, I suspect that that is the cause. He has no chest pain, but he does have some chest tenderness. Laboratory vesication's were obtained, EKG is unremarkable. We will continue to monitor. 04/14/19 02:27 Patient remained chest pain-free throughout the course of his stay. He did not have any significant palpitations. Monitor did not reveal any significant ectopic runs. My suspicion is that this was from side effects of the cough medication. His troponin was negative x2. He is to follow-up with primary care, return to the ED with worsening or new concerning symptoms of any sort. - Vital Signs Vital signs: Temp Pulse Resp BP Pulse Ox 98.0 F 59 L 17 146/104 H 97 04/13/19 23:14 04/13/19 23:14 04/14/19 02:01 04/14/19 02:01 04/14/19 00:24 - Laboratory Result Diagrams: 04/14/19 00:21 04/14/19 00:21 Laboratory results interpreted by me: 04/14/19 04/14/19 00:21 00:21 WBC 11.6 H Hgb 13.4 L Potassium 3.5 L - Diagnostic Test Radiology reviewed: Reports reviewed Radiology results interpreted by me: 04/14/19 02:28 Chest X-Ray 04/13/19 00:00 IMPRESSION: Negative chest copyright 2011 [employer]- All Rights Reserved - EKG Interpretation by Me Additional EKG results interpreted by me: 04/14/19 00:57 Sinus megaly rate of 60 bpm. Normal axis and intervals, no acute ST changes concerning for ischemia or infarction Discharge - Discharge Clinical Impression: Palpitations Condition: Stable Disposition: HOME, SELF-CARE Instructions: Palpitations (Irregular or Rapid Heartrate) ([facility]) Additional Instructions: Rest, stay well-hydrated. Avoid the cough medicine you took last night in the future. Follow-up with primary care next week. Return to the emergency department with worsening or new concerning symptoms of any sort.
[2019-04-14 01:03] LABS: CREATINE KINASE MB 0.36 ng/mL (<4.55)
[2019-04-14 01:04] LABS: TROPONIN I < 0.012 ng/mL
--- NOTE | 2019-04-14 01:08 | EKG REPORT ---
SEVERITY:- NORMAL ECG - SINUS RHYTHM : Confirmed by: Levi Cagle MD 14-Apr-2019 01:07:47
--- NOTE | 2019-04-14 01:12 | RADIOLOGY REPORT (SQ) ---
EXAM DESCRIPTION: XR CHEST 2 VIEWS COMPLETED DATE/TME: 04/13/2019 00:00 CLINICAL HISTORY: 38 years, Male, CP COMPARISON: 04/07/2019 chest NUMBER OF VIEWS: 2 TECHNIQUE: 2 view chest LIMITATIONS: None. FINDINGS: Heart size normal. Lungs clear. No pneumothorax IMPRESSION: Negative chest copyright 2010 [employer]- All Rights Reserved
[2019-04-14 01:26] LABS: APPEARANCE,URINE CLEAR; BILIRUBIN,URINE NEGATIVE (NEGATIVE); COLOR,URINE COLORLESS; GLUCOSE, URINE NEGATIVE (NEGATIVE); KETONES,URINE NEGATIVE (NEGATIVE); LEUKOCYTE ESTERASE,URINE NEGATIVE (NEGATIVE); NITRITE,URINE NEGATIVE (NEGATIVE); PROTEIN,URINE NEGATIVE (NEGATIVE); URINE SPECIFIC GRAVITY 1.004; UROBILINOGEN,URINE NEGATIVE mg/dL (<2.0)
[2019-04-14 01:29] LABS: ADD MANUAL MICROSCOPIC YES; BACTERIA,URINE TRACE /HPF
[2019-04-14 02:36] VITALS: BP 149/109
== END 2019-04-14 02:41 | disposition home or self-care (01) ==
LOC: ER 22:59
DX: R07.9 Chest pain, unspecified (principal); R06.02 Shortness of breath; R00.2 Palpitations
CPT/HCPCS: 36415; 71046; 80053; 81001; 82550; 82553; 84484; 85025; 93005; 93010